=== PATIENT | female | born 1960 | race Hispanic/Latino ===

== ENCOUNTER → 2017-12-22 | Outpatient (CLI) | payer OTHER | END | disposition home or self-care (01) | LOC: RAH 07:46 | PROVIDERS: ATTEND Family Medicine | DX: K76.0 Fatty (change of) liver, not elsewhere classified (principal); R16.1 Splenomegaly, not elsewhere classified | CPT/HCPCS: 76700 ==

== ENCOUNTER 2020-08-23 12:28 | Emergency (ER) | payer OTHER ==
[2020-08-23] MEDS ORDERED: ACETAMINOPHEN-CODEINE 300/30MG TAB ONE (12:52)
[2020-08-23 13:42] LABS: BASOPHILS % (AUTO) 0.1 % (0.0-5.0); EOSINOPHILS % (AUTO) 0.6 % (0.0-8.0); LYMPHOCYTES % (AUTO) 24.5 % (21.0-51.0); MEAN CORPUSCULAR HEMOGLOBIN 30.1 pg (27.0-33.0); MEAN CORPUSCULAR VOLUME 94.1 fL (79-99); MONOCYTES % (AUTO) 8.1 % (3.0-13.0); NEUTROPHILS % (AUTO) 66.3 % (40.0-77.0); PLATELET COUNT (AUTO) 152 K/uL (130-400); RED BLOOD CELL COUNT(AUTO) 4.25 MIL/uL (4.00-5.50); RED CELL DISTRIBUTION WIDTH 13.7 % (11.0-15.5); WHITE BLOOD COUNT (AUTO) 9.4 K/uL (4.8-10.8)
[2020-08-23] MEDS ORDERED: MORPHINE SULFATE 4 MG/1ML SYG ONE (14:07)
[2020-08-23] MEDS ORDERED: ONDANSETRON HCL 4 MG/2 ML VIAL ONE (14:07)
[2020-08-23 14:24] LABS: CREATININE 0.9 mg/dL (0.5-1.5); POTASSIUM 4.5 mmol/L (3.5-5.1)
[2020-08-23 14:28] LABS: ALBUMIN 3.2 g/dL (3.5-5.0); BILIRUBIN,TOTAL 0.5 mg/dL (0.2-1.0)
== END 2020-08-23 15:37 | disposition short-term general hospital (02) ==
LOC: EDH 12:28
DX: S72.401A Unspecified fracture of lower end of right femur, initial encounter for closed fracture (principal); S40.011A Contusion of right shoulder, initial encounter; Z20.828 Contact with and (suspected) exposure to other viral communicable diseases; I10 Essential (primary) hypertension; W18.39XA Other fall on same level, initial encounter; Y93.89 Activity, other specified; Y92.89 Other specified places as the place of occurrence of the external cause; Y99.8 Other external cause status
CPT/HCPCS: 29505; 36415; 70450; 72125; 73030; 73562; 80053; 85025; 87426; 96374; 96375; 99285; J2270; J2405; U0003

== ENCOUNTER 2021-11-27 22:11 | Emergency (ER) | payer OTHER, MEDICAID ==
[~2021-11-27] VITALS: Ht 165.1 cm; Wt 136.1 kg
[2021-11-27 22:28] LABS: BASOPHILS % (AUTO) 0.4 % (0.0-5.0); EOSINOPHILS % (AUTO) 0.4 % (0.0-8.0); HEMATOCRIT 35.6 % (36-48); LYMPHOCYTES % (AUTO) 13.9 % (21.0-51.0); MEAN CORPUSCULAR HEMOGLOBIN 24.2 pg (27.0-33.0); MEAN CORPUSCULAR HGB CONC 29.5 g/dL (32.0-36.0); MEAN CORPUSCULAR VOLUME 82.2 fL (79-99); MONOCYTES % (AUTO) 7.3 % (3.0-13.0); NEUTROPHILS % (AUTO) 77.6 % (40.0-77.0); PLATELET COUNT (AUTO) 129 K/uL (130-400); RED BLOOD CELL COUNT(AUTO) 4.33 MIL/uL (4.00-5.50); RED CELL DISTRIBUTION WIDTH 15.8 % (11.0-15.5); WHITE BLOOD COUNT (AUTO) 5.5 K/uL (4.8-10.8)
[2021-11-27] MEDS ORDERED: LORAZEPAM 1 MG TABLET PO ONE (22:30)
[2021-11-27 22:39] LABS: CREATININE 1.3 mg/dL (0.5-1.5); POTASSIUM 3.9 mmol/L (3.5-5.1)
[2021-11-27 22:43] LABS: ALBUMIN 3.5 g/dL (3.5-5.0); BILIRUBIN,TOTAL 0.5 mg/dL (0.2-1.0); TOTAL PROTEIN, SERUM 7.2 g/dL (6.0-8.3)
[2021-11-27 23:21] VITALS: BP 136/82
== END 2021-11-28 01:15 | disposition home or self-care (01) ==
LOC: EDH 22:11
DX: R07.89 Other chest pain (principal); M25.561 Pain in right knee; F41.9 Anxiety disorder, unspecified; E66.9 Obesity, unspecified; Z68.42 Body mass index [BMI] 45.0-49.9, adult; Z98.890 Other specified postprocedural states; V49.59XA Passenger injured in collision with other motor vehicles in traffic accident, initial encounter; Y93.89 Activity, other specified; Y92.413 State road as the place of occurrence of the external cause; Y99.8 Other external cause status
CPT/HCPCS: 36415; 71045; 73562; 80053; 84484; 85025

== ENCOUNTER 2021-12-02 00:30 | Emergency (ER) | payer OTHER, MEDICAID ==
[~2021-12-02] VITALS: Ht 165.1 cm; Wt 136.1 kg
[2021-12-02 04:27] VITALS: BP 162/70
== END 2021-12-02 05:35 | disposition home or self-care (01) ==
LOC: EDH 00:30
DX: G44.309 Post-traumatic headache, unspecified, not intractable (principal); I10 Essential (primary) hypertension; E66.9 Obesity, unspecified; F41.9 Anxiety disorder, unspecified; Z68.41 Body mass index [BMI] 40.0-44.9, adult
CPT/HCPCS: 70450

== ENCOUNTER → 2022-12-10 | Outpatient (CLI) | payer MEDICAID | END | disposition home or self-care (01) | LOC: SHCH 11:42 | PROVIDERS: ATTEND Internal Medicine | DX: R94.31 Abnormal electrocardiogram [ECG] [EKG] (principal); R60.9 Edema, unspecified; I10 Essential (primary) hypertension; E78.5 Hyperlipidemia, unspecified | CPT/HCPCS: 93306 ==

== ENCOUNTER 2023-04-10 18:08 | Emergency (ER) | payer OTHER, MEDICARE ==
[~2023-04-10] VITALS: Ht 162.6 cm; Wt 136.1 kg
[2023-04-10 19:09] VITALS: O2SAT 98
[2023-04-10 19:12] VITALS: BP 143/64; PULSE 60; RESP 18
[2023-04-10 20:51] LABS: BASOPHILS # (AUTO) 0.02 K/uL (0.00-0.20); BASOPHILS % (AUTO) 0.3 % (0.0-5.0); EOSINOPHILS # (AUTO) 0.17 K/uL (0.00-0.70); EOSINOPHILS % (AUTO) 2.5 % (0.0-8.0); HEMATOCRIT 44.5 % (36-48); IMMATURE GRANULOCYTE ABSOLUTE 0.04 K/uL (0-1); LYMPHOCYTES # (AUTO) 2.3 K/uL (1.0-4.8); MEAN CORPUSCULAR HEMOGLOBIN 30.7 pg (27.0-33.0); MEAN CORPUSCULAR VOLUME 98.9 fL (79-99); MONOCYTES # (AUTO) 0.6 K/uL (0.1-1.0); MONOCYTES % (AUTO) 9.2 % (3.0-13.0); NEUTROPHILS # (AUTO) 3.7 K/uL (1.8-7.7); NEUTROPHILS % (AUTO) 53.4 % (40.0-77.0); PLATELET COUNT (AUTO) 137 K/uL (130-400); RED CELL DISTRIBUTION WIDTH 12.7 % (11.0-15.5); WHITE BLOOD COUNT (AUTO) 6.9 K/uL (4.8-10.8)
[2023-04-10 21:14] LABS: CREATININE 0.9 mg/dL (0.5-1.5); POTASSIUM 5.1 mmol/L (3.5-5.1)
[2023-04-10 21:17] LABS: ALBUMIN 3.9 g/dL (3.5-5.0); BILIRUBIN,TOTAL 0.7 mg/dL (0.2-1.0); TOTAL PROTEIN, SERUM 7.3 g/dL (6.0-8.3)
[2023-04-10 21:47] LABS: B-TYPE NATRIURETIC PEPTIDE 67 pg/mL (0-100)
[2023-04-10] MEDS ORDERED: KETOROLAC 60 MG VIAL (30MG/ML) IM ONE ×2 (22:07→22:30)
[2023-04-10] MEDS ORDERED: ORPHENADRINE CITRATE 30 MG/ML ML ONE (22:08)
[2023-04-10] MEDS ORDERED: IBUP-2070 PO (22:23)
[2023-04-10] MEDS ORDERED: CYCL-309 PO (22:23)
[2023-04-10] MEDS ORDERED: ORPHENADRINE CITRATE 30 MG/ML ML IM ONE (22:30)
== END 2023-04-10 22:33 | disposition home or self-care (01) ==
LOC: EDH 18:08
DX: M54.10 Radiculopathy, site unspecified (principal); E66.9 Obesity, unspecified; F31.9 Bipolar disorder, unspecified; I10 Essential (primary) hypertension
CPT/HCPCS: 99285; 71045; 82550; 83735; 84484; 80053; 83880; 85025; 36415; 73070; 73060; 73502; 73030; 96372 ×2; 93005; J1885; J2360

== ENCOUNTER 2024-04-17 10:01 | Emergency (ER) | payer OTHER, MEDICARE ==
[~2024-04-17] VITALS: Ht 165.1 cm; Wt 136.1 kg
[~2024-04-17 10:01] MED LIST: CYCL-309 PO; IBUP-2070 PO
[2024-04-17 10:03] VITALS: BP 155/92; PULSE 82; RESP 16; TEMP 98.3; O2SAT 97
[2024-04-17] MEDS: CYCLOBENZAPRINE HCL 10 MG TABLET PO ONE (10:33)
[2024-04-17] MEDS: dexaMETHasone SOD PHOSPHATE 4 MG/ML 1ML VIAL IM ONE (10:33)
[2024-04-17] MEDS: HYDROcodone/APAP 5/325 1 TAB TABLET PO ONE (10:38)
[2024-04-17] MEDS ORDERED: METH4TAB3 PO (11:38)
[2024-04-17] MEDS ORDERED: IBUP-2077 PO (11:38)
[2024-04-17] MEDS ORDERED: CYCL10TA16 PO (11:38)
== END 2024-04-17 12:16 | disposition home or self-care (01) ==
LOC: EDH 10:01
DX: G89.29 Other chronic pain (principal); M54.42 Lumbago with sciatica, left side; E66.9 Obesity, unspecified; F31.9 Bipolar disorder, unspecified; I10 Essential (primary) hypertension; Z21 Asymptomatic human immunodeficiency virus [HIV] infection status; Z98.890 Other specified postprocedural states
CPT/HCPCS: 99283; 72100; 96372; J1100